=== PATIENT | female | born 1995 | race Caucasian/White ===

== ENCOUNTER → 2018-12-11 | Day surgery (SDC) | payer OTHER ==
[~2018-12-11] MED LIST: FENTANYL CITRATE/PF 100MCG/2 ML INJ ONE; MIDAZOLAM HCL 2 MG/2 ML VIAL ONE; PROPOFOL IV EMULSION 10 MG/ML 50 ML VIAL ONE
--- OUTSIDE RECORDS SUMMARY | 2018-12-11 09:14 | XMS REPORT | Continuity of Care Document ---
Author Author [facility] Interface Address Unknown Phone Unavailable Problems Problem Status Onset Date Classification Date Reported Comments Source FAMILY HISTOR OF BREAST CANCER Active 08/14/2016 [facility] Medications Medication Details Route Status Patient Instructions Ordering Provider Order Date Source Vitamin D3 2000 intl units oral capsule 2,000 IntlUnit=1 cap, PO, Daily, # 100 cap, 3 Refill(s) Active 02/08/2017 [facility] Allergies, Adverse Reactions, Alerts Substance Category Reaction Severity Reaction type Status Date Reported Comments Source Immunizations Immunization Date Given Site Status Last Updated Comments Source Results Order Name Results Value Reference Range Date Interpretation Comments Source Vital Signs Vital Sign Value Date Comments Source BMI Calculated 35.77 02/08/2017 [facility] Weight 88.727 02/08/2017 [facility] Height 157.5 cm 02/08/2017 [facility] Respitory Rate 16 02/08/2017 [facility] Heart Rate 68 02/08/2017 [facility] Systolic (mm Hg) 117 02/08/2017 [facility] Diastolic (mm Hg) 84 02/08/2017 [facility] Temperature Oral (F) 99.1 F 02/08/2017 [facility] Encounters Location Location Details Encounter Type Encounter Number Reason For Visit Attending Provider ADM Date DC Date Status Source [facility] Recurring [id number] Princess Hardy 02/08/2017 03/10/2017 [facility] Procedures Procedure Code Date Perfomer Comments Source
--- OUTSIDE RECORDS SUMMARY | 2018-12-11 09:14 | XMS REPORT | Summary of Care ---
Author Author [facility] Organization [facility] Address Unknown Phone Unavailable Encounter MARGARET Martin(SHERRY) [id number] Date(s): 02/08/17 - 03/09/17 [facility] [address] [place] [address]- [facility] [phone] Discharge Disposition: Home or Self Care Attending Physician: Princess Hardy MD Referring Physician: Princess Hardy MD Vital Signs Most recent to 1 oldest [Reference Range]: Height 157.5 cm (02/08/17 10:16 AM) Temperature Oral 99.1 DegF [96.4-99.1 DegF] (02/08/17 10:16 AM) Blood Pressure 117/84 mmHg [90-140/60-90 mmHg] (02/08/17 10:16 AM) Respiratory Rate 16 BRMIN [14-20 BRMIN] (02/08/17 10:16 AM) Peripheral Pulse 68 bpm Rate [60-100 bpm] (02/08/17 10:16 AM) Weight 88.727 kg (02/08/17 10:16 AM) Body Mass Index 35.77 m2 (02/08/17 10:16 AM) Problem List No data available for this section Allergies, Adverse Reactions, Alerts Substance Reaction Severity Status NKDA Active Medications Vitamin D3 2000 intl units oral capsule 2,000 IntlUnit=1 cap, PO, Daily, # 100 cap, 3 Refill(s) Start Date: 02/08/17 Status: Ordered Results No data available for this section Immunizations No data available for this section Procedures No data available for this section Social History Social History Type Response Alcohol Current, Type Beer, Wine. Frequency: 1-2 times per week. Previous treatment: None. Alcohol use interferes with work or home: No. Drinks more than intended: No. Others hurt by drinking: No. Ready to change: No. Household alcohol concerns: No. Smoking Status Never smoker; Ready to change: No; Concerns about tobacco use in household: No; Exposure to Tobacco Smoke None; Cigarette Smoking Last 365 Days No; Reg Smoking Cessation Counseling No Assessment and Plan Extracted from: Title: Genetics-Consult Note Author: Jazmin Puente MS, [facility] [place] Date: 02/08/17 Assessment/Plan 21y, PMH of benign breast biopsy 2012 with maternal FMH of early onset bresat cancer and FMH of other cancers including colon and leukemia (maternal FMH) and prostate, thyroid, renal and leukemia (paternally) Body mass index (BMI) 35.0-35.9, adult Genetic counseling and testing 1. Discussion/Recommendations/Plan: 1. Genetic counseling: - reviewed PMH andFMH and possible etiologies of cancer - paternal FMH not strongly suggestive of hereditary etiology. though GFHarpreet had two cancers, he was older andfather's generation is mostly unaffected with cancer.Therecombination of cancers in the paternal side are not currently suggestive of hereditary condition. Though the renal cancer is somewhatyoung paternally, no other FMH was suggestive of a hereditar etiology and patient's father is a/w. - maternally, patient meets criteria for BRCA1/2 testing and we would considertesting for moderate-high risk genes given how young her aunt was at age of 1st and 2nd breast cancers given criteria for BRCA1/2 as well as TP53. However, patient's maternal FMH is not as suspicious for BRCA12 given lack of strong FMH of HBOC -related cancers but more so suspicious of moderate-risk breast related genes given number of unaffected relatives. Of note, it has been clarified that patient's mother has pursued testing but it is unclear to what extent. If she has pursued via comprehensive panel testing, it is possible that perhaps testingmight not be warranted for testing, however, if patient's mother has not had comprehensive testing, then updated testing would be warranted or mother and if not interested, then patient could still pursue testing. Alternatively, patient's aunt couldpursue testing, if interested and should be covered given her age of dx and current NCCN guidelines. Unfortunately, patient's mother isunable to locate results and patient's aunt has not been able to get coverage for testing. Patient spoke with mother during appt today via phone (on speaker phone) and patient opted to pursue testing today. -discussed dustin hx of HBOC spectrum and NCCN management recommendations should BRCA1/2 mutation be identified HBOC - caused by mutation in BRCA1/2 HBOC is an autosomal dominant condition caused by a mutation in either the BRCA1 or BRCA2 genes and is associated with significant lifetime cancer risks of the breast (females: up to 87%; males: up to 6-8%), ovaries (BRCA1 carriers: up to ~44%; BRCA2 carriers: up to ~27%), prostate cancer (up to 10-35%), pancreatic cancer (up to approximately 7-10%), and melanoma (~5-6%) - discussed suspicion of BRCA1/2, TP53 (based on criteria), and possibility of other moderate-high penetrant breast cancer gene At this time the patient meets NCCN Criteria for BRCA1/2 genetic testing by the following: - second degree relative meeting the following: Personal history of breast cancer + one or more of the following: Diagnosed at or under 45y Patient's aunt also meets the NCCN Guidelines for TP53 genetic testing according to the following criteria: Early- age- onset breast cancer: Individual with breast cancer 35y, TP53 testing can be ordered concurrently with BRCA1/2 testing or as a follow-up test after negative BRCA1/2 testing Other moderate-high penetrant breast cancer gene(s): Also, it is noted that there are several moderate-high penetrant genes such as : RICARDO, BRCA1/2, BRIP1, BARD1, CDH1, CHEK2, MRE11A, MutYH, NF1, NBN, PALB2, PTEN, RAD50, RAD51C, RAD51D, TP53 which have also been associated with significant cancer risk of the breast and other organs. For example, women with a PALB2 mutation have been estimated to have up to a 35% risk of developing breast cancer by age 70 , rising to 58% if there is a strong family history (JAY Neri et al. N Engl J Med. 2014 Feb 7;371(6):497-506). PALB2 has also been associated with increased risk in pancreatic cancer and has been identified cases initially presenting with ovarian cancer (Linnea Lindsey al., [facility] 2013 Sep;62(3):339-347; RC Waldrop et al. Gynecologic Oncology 2015: 137:86-92). Identification of PALB2 or other moderate-high risk genes associated with breast (and possibly other cancer risks) may result in modificatioin to patient's management recommendations. RICARDO is also associated with significant breast cancer risk and slightly increased pancreatic cancer risk in individuals who are heterozygous for mutations. -discussed possibility of genetic testing leading to identification of other cancer risks outside of breast cancer - of note FMH not strongl suggestive of TP53 even though aunt meets criteria. Given that there is an AD pattern of cancer in aunt and GFA, his sisterdid not have cancer (though both of heridentical twin sons did have leukemia). Of note typically in LFS, one wuld see childhood leukemia. - the CRC is at a slightly younger age of dx. Onewould consider a differential of CHEK2 given theincreased cancer risks of female breast, CRC, and prostate (though has been reported in male breast as well). - other colon differntials but low given remainingFMH - paternally , low suspicion of PTEN; of note pt does not have macrocephaly. , consideration of evaluating for renal cell cancer genes 2. Genetic Testing: - reviewed the pros, cons, limitations, and potential benefits of genetic testing with the patient today - reviewed possible results of genetic testing: positive, negative, variant of unknown significance (VUS) - reviewed legislation that addresses genetic discrimination ([place]UN[place] passed in 2007) - counseled about cost of analysis and pre-authorization process - pt opted to go through her insurance. will be contacted if OOP > $100 - discussed at length options for genetic testing and pros and cons: [facility]-Expanded - 67 gene cancer test AIP, ALK, APC, RICARDO, BAP1, BARD1, BLM, BRCA1, BRCA2, BRIP1, BMPR1A, CDH1, CDK4, CDKN1B, CDKN2A,CHEK2, DICER1, EPCAM, FANCC, FH, FLCN, GALNT12, GREM1, HOXB13, MAX, MEN1, MET, MITF, MLH1, MRE11A, MSH2, MSH6, MUTYH, NBN, NF1, NF2, PALB2, PHOX2B, POT1, PMS2, POLD1, POLE, QFSYH9W, PTCH1, PTEN, RAD50, RAD51C, RAD51D, RB1, RET, SDHA, SDHAF2, SDHB, SDHC, SDHD, SMAD4, SMARCA4, SMARCB1, SMARCE1, STK11, SUFU, RQQN214, TP53, TSC1, TSC2, VHL, XRCC2 - Patient opted to pursue [facility]- Expanded 67 gene cancer test panel, was consented for the test and 2 tubes of blood were drawn at the lab for analysis to be performed at [facility] [employer]. 3. FUP: 6 wks. Results to be expected in 4 weeks at which time we will see patient in clinic for disclosure. All of patient's questions were answered today. HBOC info form provided to patient as counseling aid. I spent 97 minutes in counseling and coordination of patient care today.
[2018-12-11 14:20] VITALS: BP 111/69
--- NOTE | 2018-12-11 21:21 | Operative Report ---
DATE OF PROCEDURE: 12/11/2018 SURGEON: Clifford Betancourt MD PROCEDURE: EGD with biopsies. REFERRING PHYSICIAN: Dr. Ketan Simon. INDICATIONS FOR EGD: Acid reflux. MEDICATIONS: The patient was done under MAC, please see anesthesiologist's note. PROCEDURE IN DETAIL: With the patient in left lateral decubitus position, the flexible fiberoptic Olympus gastroscope was introduced into the esophagus under direct visualization without any difficulty. There was some patchy erythema noted in distal esophagus. The scope was then advanced with ease into the stomach traversing a small sliding hiatal hernia. The mucosa overlying the antrum and the body revealed some patchy erythema and low-grade edema and biopsies were obtained and sent to stain for H pylori. Pylorus was of normal contour and shape. It was intubated with ease and the scope was advanced all the way to the second portion of the duodenum. Biopsies were obtained from the proximal second portion and duodenal bulb to rule out sprue. The scope was then withdrawn back into the stomach and retroflexed mucosa overlying the fundus and cardia grossly appeared to be within normal limits. The scope was then straightened out. The stomach was decompressed. The scope was subsequently withdrawn and the patient tolerated procedure well. IMPRESSION: 1. Mild distal esophagitis. 2. Small sliding hiatal hernia. 3. Gastritis, biopsied. Biopsies sent to stain for H pylori. 4. Rule out sprue. PLAN: Follow up histology. Initiate Protonix 40 mg one p.o. q.a.m. a.c. Clifford Betancourt MD [facility] [place] /[id number] cc: Dr. Ketan Simon
== END | disposition home or self-care (01) ==
LOC: OR 09:12
PROVIDERS: ATTEND Internal Medicine Gastroenterology
DX: K29.70 Gastritis, unspecified, without bleeding (principal); K21.9 Gastro-esophageal reflux disease without esophagitis; K20.9 Esophagitis, unspecified; K44.9 Diaphragmatic hernia without obstruction or gangrene; Z68.39 Body mass index [BMI] 39.0-39.9, adult
CPT/HCPCS: 43239; 81025; J2250; J2704